=== PATIENT | female | born 1985 | race Caucasian/White ===

== ENCOUNTER 2019-01-30 16:39 | Emergency (ER) | payer OTHER ==
[2019-01-30] MEDS: HYDROCODONE/APAP (5/325) TAB PO (20:19)
[2019-01-30] MEDS: KETOROLAC 60 MG INJ IM (20:20)
== END 2019-01-30 22:26 | disposition home or self-care (01) ==
LOC: FTE 22:26
DX: S92.512A Displaced fracture of proximal phalanx of left lesser toe(s), initial encounter for closed fracture (principal); S90.32XA Contusion of left foot, initial encounter; W20.8XXA Other cause of strike by thrown, projected or falling object, initial encounter; Y92.9 Unspecified place or not applicable
CPT/HCPCS: 29515; 73630-LT; 81025; 96372; 99284-25